=== PATIENT | male | born 1985 | race Hispanic/Latino ===

== ENCOUNTER 2018-05-14 20:58 | Emergency (ER) | payer OTHER ==
[~2018-05-14] VITALS: Ht 190.5 cm; Wt 116.6 kg
== END 2018-05-14 22:09 | disposition home or self-care (01) ==
LOC: FSED 20:58
DX: N50.819 Testicular pain, unspecified (principal); S30.22XA Contusion of scrotum and testes, initial encounter; W22.8XXA Striking against or struck by other objects, initial encounter; Y92.008 Other place in unspecified non-institutional (private) residence as the place of occurrence of the external cause
CPT/HCPCS: 81003; 99283